=== PATIENT | male | born 2005 | race Caucasian/White ===

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

== ENCOUNTER 2025-01-15 23:17 | Emergency (ER) | payer MEDICAID ==
[~2025-01-15] VITALS: Ht 190.5 cm; Wt 74.9 kg
[2025-01-15 23:47] VITALS: BP 115/67; PULSE 86; RESP 16; O2SAT 100
--- NOTE | 2025-01-16 00:53 | Physician Documentation ---
History of Present Illness ~ Chief Complaint: Cold, cough & congestion Stated Complaint: COLD Time Seen by MD: 01:37 Primary Medical Doctor: [facility] HPI This is a 19-year-old male who presents with one-week of productive cough and fever. Patient reports no difficulty breathing. History as above. 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 Physical Exam Vital Signs: Temperature: 97.7, Source: Oral, Heart Rate: 86, Respiratory Rate: 16, BP: 115/67, Pulse Oximetry: 100, Weight: 74.900 Oxygen Flow Rate: 0 Physical Exam General: Patient is sleeping, easily arousable in no acute distress Head: Normocephalic and atraumatic. Eyes: Conjunctival normal. EOMI. PERRL. ENT: Mucous membranes moist. Neck: Supple, trachea is midline. Chest: Clear to auscultation bilaterally without rales, rhonchi, or wheezes. There is no accessory muscle use or retractions. Cardiac: RRR without murmurs, gallops, or rubs. Progress Results/Orders Results/Orders Orders - FERNANDO GUERRERO MD Benzonatate Capsule (Tessalon Perles Cap (01/16/25 01:45) Vital Signs 01/15/25 23:47 Temp 97.7 Pulse 86 Resp 16 B/P (MAP) 115/67 Pulse Ox 100 O2 Flow Rate 0 Medical Decision Making Additional information obtaine: old records Findings Patient presents to the emergency room chief complaint of cough. Differentials include but are not limited to viral syndrome, bronchitis, pneumonia, malingering. Chest x-ray is reassuring. Vital signs stable. I do not feel he requires antibiotics. Differential Dx:Considerations: Include: Allergic rhinitis, Influenza, Otitis media, Peritonsillar abscess, Pharyngitis-Diphtheria, Pharyngitis-Streptoccal, Pharyngitis-Viral, Pneumonia, Pnuemonitis, Sinusitis, URI, Other Departure Disposition: HOME / SELF CARE / HOMELESS Impression: Primary Impression: Cough Condition: Stable Discharge Instructions: Cough, Adult Referrals: NO PRIMARY CARE PROVIDER (PCP) Prescriptions Benzonatate* (Benzonatate*) 100 Mg Capsule 1-2 CAP PO Q6H for Cough, #30 CAP Prov: FERNANDO GUERRERO MD 01/16/25 Signature Scribe Signature: No scribe Attestation: The note accurately reflects work and decisions made by me.Fernando Guerrero MD 01/16/25 01:46 MARGIE LAZCANO Jan 16, 2025 00:53 FERNANDO GUERRERO MD Jan 16, 2025 01:40
--- NOTE | 2025-01-16 01:41 | RADIOLOGY REPORT ---
CHEST RADIOGRAPH Indication: Cough with fever Technique: Frontal and lateral view of the chest was obtained Comparison: DI CHEST,SINGLE VIEW on DOS: 06/12/24, DI CHEST,SINGLE VIEW on DOS: 05/09/23, CHEST,SINGLE VIEW on DOS: 09/06/22 FINDINGS: Lines and Tubes: None Lungs: Clear Pleura: No effusion. No pneumothorax. Cardiomediastinal contours: Unremarkable Bones: Unremarkable IMPRESSION: 1. No evidence of acute disease.
[2025-01-16] MEDS ORDERED: BENZ-38 PO (01:45)
[2025-01-16 02:31] VITALS: TEMP 97.7
== END 2025-01-16 02:37 | disposition home or self-care (01) ==
LOC: ER 23:18
DX: R05.9 Cough, unspecified (principal); R50.9 Fever, unspecified; F32.A Depression, unspecified; F15.90 Other stimulant use, unspecified, uncomplicated; F10.90 Alcohol use, unspecified, uncomplicated; Z86.73 Personal history of transient ischemic attack (TIA), and cerebral infarction without residual deficits; Z88.8 Allergy status to other drugs, medicaments and biological substances; Z79.899 Other long term (current) drug therapy; Y90.9 Presence of alcohol in blood, level not specified
CPT/HCPCS: 71046; 99283

== ENCOUNTER 2025-02-07 20:04 | Emergency (ER) | payer MEDICAID ==
[~2025-02-07] VITALS: Ht 190.5 cm; Wt 70.9 kg
[~2025-02-07 20:04] MED LIST changes: +BENZ-38 PO
[2025-02-07 20:36] LABS: MEAN PLATELET VOLUME 8.0 FL (7.4-10.4); RED CELL DISTRIBUTION WIDTH 14.6 % (11.5-14.5)
[2025-02-07 21:00] LABS: CREATININE 0.97 MG/DL (0.60-1.10); TOTAL CARBON DIOXIDE 29.2 MMOL/L (24-32); eCRCL 123 ML/MIN; eGFR > 90 ML/MIN
[2025-02-07 23:05] LABS: ETHANOL < 10 MG/DL (<10)
--- NOTE | 2025-02-07 23:28 | Physician Documentation ---
History of Present Illness ~ Chief Complaint: Mental Health Eval Stated Complaint: 51/50 Time Seen by MD: 21:59 OK to notify your PCP?: Yes [facility] Mode of Arrival: Police [facility] This is a 19-year-old male brought in by law enforcement on a written 5150, patient is refusing to answer any questions. Uncooperative with exam Medication Reconciliation Allergies: Coded Allergies: diphenhydramine (Verified Allergy, Intermediate, HOTN, 02/01/25) quetiapine (Verified Allergy, Unknown, 02/01/25) red dye (Verified Allergy, Unknown, 02/01/25) RED DYE 40 Scheduled Paliperidone Palmitate (Invega Sustenna), 1 ML IM Q28D, (Reported) Discontinued Medications Benzonatate* (Benzonatate*), 1-2 CAP PO Q6H Discontinued Reason: completed med therapy Fluoxetine Hcl (Fluoxetine Hcl), 20 MG PO DAILY Discontinued Reason: completed med therapy Multivits W-Min/Ferrous Gluc (Centrum Multivit-Mineral Liq), 15 ML PO DAILY Discontinued Reason: patient no longer taking [place]-3 Fatty Acids/Fish Oil ([place] 3 1,000 mg Softgel), 4 CAP PO BKF Discontinued Reason: patient no longer taking Vitamin B Complex & Vit C No.3 (B Complex with Vitamin C), 1 TAB PO DAILY Discontinued Reason: patient no longer taking [thiamine tablet], 100 MG PO BID Discontinued Reason: patient no longer taking Past Medical History 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 Physical Exam Vital Signs: RN Vital Signs have been reviewed: Yes, Temperature: 97.5, Source: Oral, Heart Rate: 82, Respiratory Rate: 16, BP: 98/62, Pulse Oximetry: 98, Weight: 70.910 Physical Exam VITALS: Reviewed and as above. GENERAL: Alert, nontoxic appearing, no apparent distress. HEENT: Refusing to open eyes RESPIRATORY: No increased work of breathing, no respiratory distress, clear lung sounds in all gonzalez CHEST: No pain elicited with palpation CV: Regular rate and rhythm no murmur BACK: No pain elicited with palpation including no pain elicited with palpation of central spine, no step-offs, no crepitus GI: No pain elicited with palpation, soft, nondistended, no rebound, no guarding, bowel sounds present MUSCULOSKELETAL: No pain elicited with palpation SKIN: Warm and dry NEURO: Alert, actively not participating in exam with purposeful movement PSYCH: Bizarre mood and affect Progress Progress Note Transfer orders for [facility]: At this time there is no evidence of an emergent medical condition that would preclude (admission/transfer) to a psychiatric unit via [facility] protocol for further psychiatric, as well as medical evaluation and treatment. At this time I have no reason to believe that transfer via [facility] protocol would have serious medical compromise in the patient's health. Results/Orders Reviewed/noted all lab results: Yes Results/Orders Orders - STEPHON MORTON MD Drug Screen, Urine (02/07/25 20:14) Urinalysis, Cult If Indicated (02/07/25 20:14) Paliperidone Palmitate Inj (Invega Suste (02/08/25 08:00) Completed Orders - STEPHON MORTNO MD Cbc/Diff (02/07/25 20:14) BMP (02/07/25 20:14) TSH (02/07/25 20:14) Ethanol (02/07/25 20:26) Vital Signs 02/07/25 02/07/25 20:07 20:11 Temp 97.5 Pulse 82 Resp 16 16 B/P (MAP) 98/62 Pulse Ox 98 Laboratory Tests Test 02/07/25 20:26 02/07/25 23:40 White Blood Count 5.8 Red Blood Count 4.27 L Hemoglobin 12.1 L Hematocrit 36.9 L Mean Corpuscular Volume 86.4 Mean Corpuscular Hemoglobin 28.3 Mean Corpuscular Hemoglobin Concent 32.7 L Red Cell Distribution Width 14.6 H Platelet Count 222 Mean Platelet Volume 8.0 Neutrophils (%) (Auto) 49.2 Lymphocytes (%) (Auto) 31.6 Monocytes (%) (Auto) 13.9 H Eosinophils (%) (Auto) 3.3 Basophils (%) (Auto) 2.0 H Neutrophils # (Auto) 2.8 Lymphocytes # (Auto) 1.8 Monocytes # (Auto) 0.8 Eosinophils # (Auto) 0.2 Basophils # (Auto) 0.1 CBC Comment Sodium Level 140 Potassium Level 4.2 Chloride Level 105 Carbon Dioxide Level 29.2 Anion Gap 6 L Blood Urea Nitrogen 16 Creatinine 0.97 Estimated GFR/1.73 m2 > 90 BUN/Creatinine Ratio 16.5 Glucose Level 101 Calcium Level 8.6 Albumin 3.3 L Thyroid Stimulating Hormone (TSH) 1.43 Chemistry Comments Ethyl Alcohol Level < 10 SARS-CoV-2 Antigen (Rapid) Negative Re-Evaluation Re-Evaluation : Re-Evaluation: Unchanged Progress Patient was sleeping overnight. Patient has a psychiatric history. Patient does not have a urine that has not provided however based on the patient's laboratory work alcohol is negative chemistries reassuring and within normal limits CBC does not show any elevated white count or leukocytosis which is reass uring unlikely infectious etiology. Patient does have a bizarre affect. Tox screen unfortunately has not been obtained at this time. However patient is medically cleared for mental health treatment transport and evaluation. Tox screen is pending Medical Decision Making Additional information obtaine: N/A Findings As patient is refusing to answer questions I am unable to fully ascertained if patient has medical concerns or complaints, given patient is otherwise well- appearing and actively avoiding exam I have low suspicion for acute medical concern at this time. Lab work is reassuring without significant abnormality, vital signs stable. Patient is well-appearing. Differential Dx:Considerations: Include: Alcohol abuse, Anxiety, Bipolar disorder, Conversion disorder, Depression, Homicidal, Panic disorder, Personality disorder, Schizophrenia, Substance abuse, Suicidal Departure Disposition: 30 STILL A PATIENT Impression: Primary Impression: Mental disorder Condition: Stable Discharge Instructions: Psychosis Additional Instructions: Follow up with mental health recommendations as discussed Referrals: NO PRIMARY CARE PROVIDER (PCP) Education Educated: Patient Educated regarding: diagnosis Signature Scribe Signature: No scribed Attestation: The note accurately reflects work and decisions made by me.Stephon Morton MD 02/08/25 07:03 MARGIE LAZCANO Feb 07, 2025 23:28 STEPHON MORTON MD Feb 08, 2025 07:03
[2025-02-07] MEDS ORDERED: PALI156D IM (23:58)
[2025-02-08] MEDS: paliperidone palmitate 156 mg/ml inj.**IM only IM SCH (08:00)
[2025-02-08 08:45] LABS: LEUKOCYTE ESTERASE ,URINE NEGATIVE (Neg); NITRITES, URINE NEGATIVE (Neg); OCCULT BLOOD,URINE NEGATIVE (Neg)
[2025-02-08 08:47] LABS: UA COLLECTION TYPE CLN CATCH MIDSTREAM
[2025-02-08 08:51] LABS: URINE AMPHETAMINE SCREEN POSITIVE (Neg); URINE BARBITUATE SCREEN NEGATIVE (Neg); URINE BENZODIAZEPINES SCREEN NEGATIVE (Neg); URINE CANNABINOID SCREEN NEGATIVE (Neg); URINE COCAINE SCREEN NEGATIVE (Neg); URINE METHADONE SCREEN NEGATIVE (Neg); URINE OPIATE SCREEN NEGATIVE (Neg); URINE PHENCYCLIDINE SCREEN NEGATIVE (Neg)
[2025-02-09 05:22] VITALS: BP 108/52; PULSE 68; RESP 18; TEMP 98.2; O2SAT 99
== END 2025-02-09 13:29 | disposition still patient (30) ==
LOC: ER 20:05
DX: F99 Mental disorder, not otherwise specified (principal); F32.A Depression, unspecified; F15.90 Other stimulant use, unspecified, uncomplicated; F10.10 Alcohol abuse, uncomplicated; Z88.8 Allergy status to other drugs, medicaments and biological substances; Z79.899 Other long term (current) drug therapy; Z86.73 Personal history of transient ischemic attack (TIA), and cerebral infarction without residual deficits; Z20.822 Contact with and (suspected) exposure to COVID-19; Y90.9 Presence of alcohol in blood, level not specified
CPT/HCPCS: 36415; 80048; 80305; 80320; 81003; 84443; 85025; 87811; 99285